=== PATIENT | male | born 1955 | race Caucasian/White ===

== ENCOUNTER 2019-08-12 10:41 | Outpatient (CLI) | payer MEDICARE, SELFPAY ==
--- NOTE | ~2019-08-12 | PE_ITS ---
EXAMINATION: PET skull to mid thigh DATE: 08/12/2019 14:21 INDICATION: Malignant neoplasm of bone and articular cartilage. Lung cancer. TECHNIQUE: Blood glucose level was 125 mg/dL. 9.697 mCi of 18-fluorodeoxyglucose (18-FDG) was adminis tered i.v. Low dose computed tomography (CT) images were acquired from the base of the brain to the p roximal thighs for attenuation correction and anatomic localization. Automated exposure control was e mployed. Dose-length product (DLP) was 1229 mGy-cm. Positron emission tomography (PET) images were ac quired in the same distribution. COMPARISON: Chest CT 04/12/2016, lumbar spine 07/31/2019, brain MRI 11/21/2014 FINDINGS: Head/neck: There is chronic encephalomalacia involving right parietal and temporal lobes with decreas ed activity. There is increased activity in some of the neck muscles without CT correlate, likely phy siologic. There is increased activity in the oropharynx and glottis without CT correlate, likely phys iologic. There are no pathologically enlarged lymph nodes. Chest: There are changes of total left pneumonectomy. There is fluid in the left pneumonectomy resect ion cavity with chronic wall thickening without increased activity. There is chronic leftward shift o f the mediastinum. There is mild scarring at right lung apex. There is a 4 mm nodule in right upper l obe. There is a 5 mm nodule in right lower lobe. There is 11 mm nodule at right major fissure in righ t lower lobe. There is no increased activity in these nodules. These nodules are stable from 6, likely benign. No right pleural effusion. The heart size is normal. There are coronary artery calc ifications. No pericardial effusion. Abdomen/pelvis/proximal thighs: The liver and spleen are normal. There are changes of cholecystectomy . The pancreas, adrenal glands, and kidneys are normal. The prostate is mildly enlarged. There are no dilated loops of bowel. There are no pathologically enlarged lymph nodes. There is no free intraperi toneal fluid. There is a left inguinal hernia containing fat. There is a large permeative lytic lesio n in L5 vertebral body with maximum SUV of 23.9. IMPRESSION: 1. Permeative lytic lesion in L5 vertebral body with increased activity, consistent with metastatic d isease. Reviewed, dictated and finalized at location A. RANS SERVICE REPRESENTATIVE IMPRESSION: 1. Permeative lytic lesion in L5 vertebral body with increased activity, consis tent with metastatic disease.
[2019-08-12 11:11] LABS: Glucose Point of Care 125 (65-105)
== END 2019-08-12 10:42 | disposition home or self-care (01) ==
PROVIDERS: Visit Provider Family Medicine
DX: C41.9 Malignant neoplasm of bone and articular cartilage, unspecified (principal)
CPT/HCPCS: 78815; A9552

== ENCOUNTER 2019-10-01 14:22 | Outpatient (CLI) | payer MEDICARE, SELFPAY ==
--- NOTE | ~2019-10-01 | XR_ITS ---
XR lumbar spine 2-3V DATE: 10/01/2019 15:07 INDICATION: 6 weeks postoperative TECHNIQUE: AP and lateral views of the lumbar spine COMPARISON: 07/23/2009 lumbar spine 07/31/2019 MRI lumbar spine FINDINGS: Since 07/23/2019 there is posterior spinal fusion from L3-S1, with posterior pedicle screws at L3, L4 and S1 bilaterally and another screw extending obliquely inferolaterally across the left sa croiliac area. Bone graft material is noted along the posterior elements of the lower lumbar area. The hardware appears intact, without evidence of fracture or displacement from expected position. No interval fracture or dislocation. Bone destruction is again noted at L5. Moderately prominent degenerative disease at L2-3. There is extensive calcification of the abdominal aorta and iliac arteries, without evidence of aneur ysm. Status post cholecystectomy. IMPRESSION: Status post posterior fusion at L3-S1 Again noted is destruction of L5 vertebral body Reviewed, dictated and finalized at location B.
== END 2019-10-01 14:23 | disposition home or self-care (01) ==
LOC: ANHIMG 14:45
DX: Z09 Encounter for follow-up examination after completed treatment for conditions other than malignant neoplasm (principal); Z98.1 Arthrodesis status; Z90.49 Acquired absence of other specified parts of digestive tract
CPT/HCPCS: 72100

== ENCOUNTER 2019-12-05 07:56 | Outpatient (CLI) | payer MEDICARE, SELFPAY ==
--- NOTE | ~2019-12-05 | US_ITS ---
US venous doppler [facility] DATE: 12/05/2019 08:35 INDICATION: Bilateral leg edema TECHNIQUE: Real-time and color flow imaging and Doppler analysis COMPARISON: None FINDINGS: The greater saphenous veins are patent. There is spontaneous and phasic flow and normal aug mentation and color flow signal and normal compression of the deep veins of both lower extremities. N o deep venous thrombosis is detected. IMPRESSION: Negative Reviewed, dictated and finalized at Location A. Reviewed, dictated and finalized at location A. IMPRESSION: Negative
== END 2019-12-05 07:57 | disposition home or self-care (01) ==
LOC: ANHIMG 08:04
PROVIDERS: PCP Family Medicine; Visit Provider Internal Medicine Medical Oncology
DX: R60.0 Localized edema (principal)
CPT/HCPCS: 93970

== ENCOUNTER 2019-12-17 09:58 | Outpatient (CLI) | payer MEDICARE, SELFPAY ==
--- NOTE | ~2019-12-17 | CT_ITS ---
EXAMINATION: CT chest abdomen pelvis w con EXAM DATE: 12/17/2019 10:59 INDICATION: Diffuse large cell lymphoma. Permeative L5 lesion. Lung cancer. TECHNIQUE: Spiral CT of the chest, abdomen and pelvis was performed following intravenous injection o f 100 mL Omnipaque 350. Axial, coronal and sagittal images were reviewed. Coronal maximum intensity pixel images of chest reviewed. The dose-length product (DLP) for this examination was 1764.11 mGy- cm. The exposure was tailored according to patient size (auto mA exposure control), and iterative re construction (ASIR) was used as additional dose reduction technique. Comparison is made to prior exam ination from 08/12/2019. FINDINGS: CHEST: There is a right-sided Chemo-Port. Status post left pneumonectomy with chronic left pleural e ffusion, leftward mediastinal shift. Pleural-based right lower lobe nodules are unchanged, largest 11 mm, granulomas. No new or suspicious right lung nodules. There are no pleural or pericardial effusio ns. Tracheobronchial tree is patent. There is no mediastinal, hilar or axillary lymphadenopathy. There is no pneumothorax. Heart normal in size. There is mild to moderate coronary arterial aaron cification, arterial sclerosis. ABDOMEN PELVIS: The liver, spleen, adrenal glands and pancreas are unremarkable. There are cholecyst ectomy clips. Portal and splenic veins are patent. Kidneys enhance symmetrically. There is no hydr onephrosis. The prostate is unremarkable. The bladder is unremarkable. There is no retroperitonea l or pelvic lymphadenopathy. There is moderate scattered arteriosclerotic disease. The appendix is normal. The stomach and small bowel are unremarkable. There is expected amount of c olonic stool. No free intraperitoneal gas. There is been interval placement of fusion hardware at L3-S1. The right L5 radicular screw traverses the lateral recess. Again there is diffuse permeative pattern to the L5 vertebral body. There is no m oderate to severe pathological compression of this level, mild progression compared to prior study. L 5 laminectomies. No other osseous lesions. IMPRESSION: 1. Interval lower lumbar fusion, L5 laminectomy. Progression in the collapse of the L5 pathologic co mpression fracture. 2. Stable right lung noncalcified granulomas and left surgical changes. Reviewed, dictated and finalized at location A. IMPRESSION: 1. Interval lower lumbar fusion, L5 laminectomy. Progression in the collapse o f the L5 pathologic compression fracture. 2. Stable right lung noncalcified granulomas and left surgical changes.
[2019-12-17 10:47] LABS: Estimated Glomerular Filt Rate > 60
== END 2019-12-17 09:59 | disposition home or self-care (01) ==
LOC: ANHIMG 10:00
PROVIDERS: PCP Family Medicine
DX: C83.39 Diffuse large B-cell lymphoma, extranodal and solid organ sites (principal); Z98.1 Arthrodesis status; M48.56XA Collapsed vertebra, not elsewhere classified, lumbar region, initial encounter for fracture; R91.8 Other nonspecific abnormal finding of lung field
CPT/HCPCS: 36415; 71260; 74177; Q9967

== ENCOUNTER 2020-02-14 10:30 | Outpatient (RCR) | payer MEDICARE, SELFPAY ==
--- NOTE | 2019-12-08 15:56 | PTOPEVAL ---
PHYSICAL THERAPY EVALUATION AND PLAN OF CARE 12-08-2019 PT evaluation was completed for the diagnosis of leg weakness. His plan of treatment is scheduled for 1-2 x/week for 5 weeks. Thank you for referring Geovanny Julian to [facility]. Please review, sign, date and return this plan of care [facility]. I agree with and certify that the following plan of care is medically necessary. Referring Physician Date Attending Provider: Brayan Castelan DO *PT Outpatient Evaluation Start: 12/08/19 14:44 Document 12/08/19 14:40 JACINDA (Rec: 12/08/19 15:47 JACINDA [id number]) Outpatient Past Medical History Past Medical History Source of Past Medical History Patient,Family/Significant Other Neurological History Hx Neurological Disorders No Significant History Cardiovascular History Hx Atrial Fibrillation Yes: one incident in hospital, monitor 30 days no issues Hx Hypertension Yes: meds Respiratory History Hx Other Respiratory Disorders Yes: L lung removed due to cancer; Gastrointestinal History Hx Gastrointestinal Disorders No Significant History Genitourinary History Hx Genitourinary Disorders No Significant History Musculoskeletal History Hx Orthopedic Surgery Yes: this surgery- lumbar fusion L 3-S1 due to L5 tumor burst Endocrine History Hx Endocrine Disorders No Significant History HEENT History Hx Other HEENT Disorders Yes: glasses Other History Hx Cancer Yes: 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
--- NOTE | 2020-01-11 15:10 | PCPTNOTE ---
pt's called and left voice message, canceled stated radiation has made him too fatigued/exhausted to come in today; I returned call and left them a voice mail, if need to return to PT or HOLD due to radiation and not feeling well.
--- NOTE | 2020-01-20 08:52 | PTOPEVAL ---
PHYSICAL THERAPY RE-EVALUATION AND UPDATED PLAN OF CARE 01-20-2020 Mr. Julian has received 8 PT sessions, from December 07 to today, for the diagnosis of leg weakness and decreased gait balance. Compared to the initial evaluation, he has improved with: R and L LE strength; transfer supine/sit and sit/stand; 6 minute walking distance; Tinetti balance score; ability on stairs and reported activity tolerance at home. He has been issued a home exercise program for leg strengthening. PT is to continue, 2x/week for 3 weeks, to further increase his strength, balance and mobility. Thank you for referring Geovanny Julian to [facility]. Please review, sign, date and return this plan of care [facility]. I agree with and certify that the following plan of care is medically necessary. Referring Physician Date Attending Provider: Brayan Castelan, *PT Outpatient Re-Evaluation Document 01/20/20 08:10 JACINDA (Rec: 01/20/20 08:50 JACINDA [id number]) Subjective Information Bill reports: radiation is Query Text:As Reported By Patient/ completed, after 10 sessions; Family is using the wheeled walker for distances and not using in the house- no device or cane; have been fatigued with radiation; trying to do more activity, but have to rest after about 10 minutes; no falls; want to continue PT to get stronger and be able to get on/off motorcycle. Pain Assessment Timing of Pain Assessment Timing of Pain Assessment Assessment Pain Scale Pain Scale Used Numeric (1 - 10) Self Report Pain Assessment Bilateral Back Reported Pain Level 2 Pain Frequency Chronic Pain Score Pain Score 2: Self Report Lower Extremity Muscle Strength Testing General Lower Extremity Strength Gross Lower Extremity Strength sit/stand from chair 18 - requires use of 1 UE; and labored; with stand to sit, without UE use, plop into chair--cannot control eccentric motion; - sitting L LE; knee ext x 25 reps; alt R/L hip flex x 20 reps; good control with R LE motions and placement Transfer Assessment Floor Transfer Assessment Floor Transfer Comments have goal for floor transfer, but pt did not want to do today; does not normally get on/off floor and does not feel like he has enough energy to do this AM. Balance Assessment Tinetti Balance Assessment Sitting Balance Steady, s
--- NOTE | 2020-02-14 11:18 | PTOPEVAL ---
PHYSICAL THERAPY DISCHARGE 02-14-2020 Paresh has received a total of 14 PT sessions, from December 07 to today, for the diagnosis of leg weakness. Compared to the last reevaluation: is now able to transfer without the use of UE's: standing up from 22 seat height and sitting down to 18 seat height; Tinetti balance score improved by 3 points; 6 minute walking test is the same distance, but did not require a rest break; he stated he feels his legs are stronger and is walking more with the cane. The goals were partially achieved. He is to continue to work on his leg strengthening exercises and increase his activity tolerance, with rest periods as needed. Thank you for referring Mr. Julian to [facility]. Please review, sign, date and return this discharge [facility]. I agree with and certify that the following plan of care is medically necessary. Referring Physician Date Attending Provider: Brayan Castelan DO *PT Outpatient Discharge Document 02/14/20 10:35 JACINDA (Rec: 02/14/20 11:13 JACINDA [id number]) Subjective Information Paresh reports: has not had any Query Text:As Reported By Patient/ falls, is walking and feels Family like legs are stronger; has not been doing his leg exercises, but walking more and mowing yard on riding treatment counselor; Pain Assessment Timing of Pain Assessment Timing of Pain Assessment Assessment Pain Scale Pain Scale Used Numeric (1 - 10) Self Report Pain Assessment Bilateral Back Reported Pain Level 0 Pain Frequency Chronic Lowest Pain Intensity 0 Greatest Pain Intensity 8 Pain Aggravating Factors Weight Bearing/Standing Other Pain Aggravating Factors standing tolerance 5 min, Pain Relief Interventions Used By Inactivity/Rest,Sitting Patient Additional Pain Comments take pain pill or muscle relaxer before bed sometimes Pain Score Pain Score 0: Self Report Lower Extremity Muscle Strength Testing General Lower Extremity Strength Gross Lower Extremity Strength sit to stand from 18 seat: stand with 1 UE support/ sit down without UE use- control well; side lying hip abduction R 6 reps /L 7 reps; supine bridge x 15 rpes; -simulated standing and raising R leg up/over, like getting onto motorcycle; he was able to lift foot ~ knee high; would not be able to clear his motorcycle seat; ADD: HEP: bridge and hip abduction in side lying Transf
== END 2020-02-14 14:30 | disposition home or self-care (01) ==
LOC: ANHPT 10:30
PROVIDERS: PCP Family Medicine; Visit Provider Internal Medicine Medical Oncology
DX: R29.898 Other symptoms and signs involving the musculoskeletal system (principal)
CPT/HCPCS: 97110; 97162

== ENCOUNTER 2020-04-17 11:02 | Outpatient (CLI) | payer MEDICARE, SELFPAY ==
--- NOTE | ~2020-04-17 | CT_ITS ---
EXAMINATION: CT chest abdomen pelvis w con DATE: 04/17/2020 12:17 INDICATION: Large B-cell lymphoma; restaging TECHNIQUE: Computed tomography (CT) of the chest, abdomen, and pelvis was performed with 100 cc Omnip aque 350 intravenous contrast. Automated exposure control and iterative reconstruction technique were employed. Exam dose: 1674.01 mGy-cm total exam DLP. COMPARISON: 12/17/2019 CT chest abdomen pelvis FINDINGS: CHEST CT: Status post left thoracotomy/left pneumonectomy, with corresponding shift of the heart mediastinum in to the left thorax. Right Port-A-Cath catheter tip in upper right atrium. Heart size is within upper limits of normal. There is no pericardial effusion. There are coronary art tyra calcifications. Approximately 8.5 mm pleura-based nodule in the right lower lobe, possibly fissural node, not change d since 11/2019. No interval new or enlarging pulmonary mass is noted. There is no pulmonary infiltr ate or consolidation. ABDOMEN/PELVIS CT: Status post cholecystectomy. The liver, spleen, pancreas, adrenal glands and kidneys are unremarkable. No bile duct or pancreatic duct dilatation. No urinary tract calculus or hydroureteronephrosis. Normal caliber but extensive atherosclerotic calcification of the abdominal aorta and iliac arteries. No intraperitoneal or retroperitoneal or pelvic mass lesion or adenopathy or ascites. There is mild diffuse thickening of the urinary bladder wall. Moderate prostate enlargement. No bowel obstruction, bowel wall thickening, pneumatosis or intraperitoneal free air. Normal appendix . Bilateral small fat-containing inguinal hernias. Status post posterior spinal fusion at L3-S1 and chronic pathological fracture of L5. IMPRESSION: Status post left thoracotomy and pneumonectomy Right Port-A-Cath in upper right atrium No interval mass or lymphadenopathy since 12/17/2019 Reviewed, dictated and finalized at Location A. Reviewed, dictated and finalized at location A.
[2020-04-17 12:06] LABS: Estimated Glomerular Filt Rate > 60
== END 2020-04-17 11:03 | disposition home or self-care (01) ==
PROVIDERS: PCP Family Medicine; Visit Provider Internal Medicine Medical Oncology
DX: C83.39 Diffuse large B-cell lymphoma, extranodal and solid organ sites (principal)
CPT/HCPCS: 71260; 74177; Q9967

== ENCOUNTER 2020-07-10 10:09 | Outpatient (CLI) | payer MEDICARE, SELFPAY ==
--- NOTE | ~2020-07-10 | CT_ITS ---
EXAMINATION: CT chest abdomen pelvis w con DATE: 07/10/2020 11:03 INDICATION: Restaging of non-Hodgkin's lymphoma TECHNIQUE: Computed tomography (CT) of the chest, abdomen, and pelvis was performed with 100 cc Omnip aque 350 intravenous contrast. Automated exposure control and iterative reconstruction technique were employed. Exam dose: 1572.20 mGy-cm total exam DLP. COMPARISON: 04/17/2020 CT chest abdomen pelvis 12/17/2019 CT chest abdomen pelvis FINDINGS: CHEST CT: Right Port-A-Cath catheter tip in right atrium. Status post complete left lung resection with leftward shift of heart and mediastinum. No hilar or mediastinal mass lesion or lymphadenopathy. There is atherosclerotic calcification of the thoracic aorta, great vessels and coronary arteries. No thoracic aortic aneurysm or dissection is evident. Stable approximately 9 mm probable right greater fissural lymph node. Two stable 4 mm or smaller right lower lobe opacities, not significantly changed since 12/17/2019. No pulmonary infiltrate or consolidation is evident on the right. No right pleural effusion. No peric ardial effusion. ABDOMEN/PELVIS CT: Status post cholecystectomy. No hepatic, splenic, pancreatic, and adrenal or renal space-occupying ma ss lesion is evident. There is extensive calcification of the abdominal aorta, iliac and femoral arteries, without evidence of aneurysm. No intraperitoneal or retroperitoneal or pelvic mass lesion or adenopathy or ascites. Small bilateral fat-containing inguinal hernias. Mild sigmoid colon diverticulosis; no CT evidence of diverticulitis. Normal appendix. No bowel obstru ction, bowel wall thickening, pneumatosis or intraperitoneal free air. Diffuse idiopathic skeletal hyperostosis of the thoracic spine. Severe likely pathologic compression fracture deformity at L5; status post posterior surgical spinal fusion at L3-S1. IMPRESSION: No chest, abdomen or pelvic mass or lymphadenopathy Status post left pneumonectomy Status post cholecystectomy Chronic likely pathological fracture at L5 with posterior spinal fusion at L3-S1 Mild colonic diverticulosis Reviewed, dictated and finalized at Location A. Reviewed, dictated and finalized at location A. OLL ACCOUNTING CLERK IMPRESSION: No chest, abdomen or pelvic mass or lymphadenopathy Status post left pneumonectomy Status post cholecystectomy Chronic likely pathological fracture at L5 with posterior spinal fusion at L3-S 1 Mild colonic diverticulosis
[2020-07-10 10:41] LABS: Estimated Glomerular Filt Rate > 60
== END 2020-07-10 10:10 | disposition home or self-care (01) ==
PROVIDERS: PCP Physician Assistant; Visit Provider Internal Medicine Medical Oncology
DX: C85.90 Non-Hodgkin lymphoma, unspecified, unspecified site (principal); K57.30 Diverticulosis of large intestine without perforation or abscess without bleeding; Z90.49 Acquired absence of other specified parts of digestive tract; Z98.1 Arthrodesis status
CPT/HCPCS: 71260; 74177; Q9967

== ENCOUNTER 2020-08-11 09:37 | Outpatient (CLI) | payer MEDICARE, SELFPAY | END 2020-08-11 09:38 | disposition home or self-care (01) | LOC: CHSLAB 09:42 | PROVIDERS: PCP Physician Assistant; Visit Provider Specialist | DX: C44.212 Basal cell carcinoma of skin of right ear and external auricular canal (principal) | CPT/HCPCS: 88305 ==

== ENCOUNTER 2020-09-15 11:14 | Outpatient (CLI) | payer MEDICARE, SELFPAY | END 2020-09-15 11:15 | disposition home or self-care (01) | LOC: ANHCOVIDVC 11:15 | PROVIDERS: PCP Physician Assistant | DX: Z23 Encounter for immunization (principal) | CPT/HCPCS: 0001A; 91300 ==

== ENCOUNTER 2020-10-06 09:13 | Outpatient (CLI) | payer MEDICARE, SELFPAY ==
--- NOTE | ~2020-10-06 | CT_ITS ---
EXAMINATION: CT chest abdomen pelvis w con EXAM DATE: 10/06/2020 09:51 INDICATION: Diffuse large B-Cell lymphoma of extranodal site excluding s . Lung cancer. TECHNIQUE: Spiral CT of the chest, abdomen and pelvis was performed following intravenous injection o f 100 mL Omnipaque 350. Axial, coronal and sagittal images were reviewed. Coronal maximum intensity pixel images of chest reviewed. The dose-length product (DLP) for this examination was 1867.57 mGy- cm. The exposure was tailored according to patient size (auto mA exposure control), and iterative re construction (ASIR) was used as additional dose reduction technique. Comparison is made to prior exam ination from 07/10/2020. FINDINGS: CHEST: There is a right-sided portacatheter. There is left-sided pneumonectomy with chronic small am ount of left pleural fluid, chronic pleural thickening on the left and leftward mediastinal shift. No central pulmonary emboli. Right lung has compensatory hyperexpansion. There is no interval change i n the pleural-based nodule in the right lower lobe along the major fissure measuring about 4 mm in th ickness by 10 mm in diameter, and smaller 3 mm adjacent nodules, likely postinfectious. Tracheobronch ial tree is patent. There is no mediastinal, hilar or axillary lymphadenopathy. There is no pneum othorax. Heart normal in size. There is moderate to severe coronary arterial calcification, arter ial sclerosis. ABDOMEN PELVIS: The liver, spleen, adrenal glands and pancreas are unremarkable. There are cholecyst ectomy clips. Portal and splenic veins are patent. Kidneys enhance symmetrically. There is no hydr onephrosis. There is mild prostatomegaly. The bladder is unremarkable. There is no retroperitoneal or pelvic lymphadenopathy. There is moderate to severe scattered arteriosclerotic disease. The appendix is normal. The stomach and small bowel are unremarkable. There is expected amount of c olonic stool. No free intraperitoneal gas. Abnormal L5 bone density with moderate to severe patho logical compression at this level, and stabilization, fusion from L4 through S1, unchanged. IMPRESSION: Stable exam. Reviewed, dictated and finalized at location A. IMPRESSION: Stable exam.
[2020-10-06 09:42] LABS: Estimated Glomerular Filt Rate > 60
== END 2020-10-06 09:14 | disposition home or self-care (01) ==
PROVIDERS: PCP Physician Assistant; Visit Provider Internal Medicine Medical Oncology
DX: C83.39 Diffuse large B-cell lymphoma, extranodal and solid organ sites (principal)
CPT/HCPCS: 71260; 74177; Q9967

== ENCOUNTER 2020-10-06 10:18 | Outpatient (CLI) | payer MEDICARE, SELFPAY | END 2020-10-06 10:19 | disposition home or self-care (01) | LOC: ANHCOVIDVC 10:18 | PROVIDERS: PCP Physician Assistant | DX: Z23 Encounter for immunization (principal) | CPT/HCPCS: 0002A; 91300 ==

== ENCOUNTER 2021-01-19 08:31 | Outpatient (CLI) | payer MEDICARE, SELFPAY ==
--- NOTE | ~2021-01-19 | CT_ITS ---
EXAMINATION: CT chest abdomen pelvis w con EXAM DATE: 01/19/2021 10:00 INDICATION: Diffuse large B cell lymphoma of extranodal site. Lung cancer. TECHNIQUE: Spiral CT of the chest, abdomen and pelvis was performed following intravenous injection o f 100 mL Omnipaque 350. Axial, coronal and sagittal images were reviewed. Coronal maximum intensity pixel images of chest reviewed. The dose-length product (DLP) for this examination was 1892.76 mGy- cm. The exposure was tailored according to patient size (auto mA exposure control), and iterative re construction (ASIR) was used as additional dose reduction technique. Comparison is made to prior exam ination from 10/06/2020. FINDINGS: CHEST: There is a right-sided portacatheter. There is left-sided pneumonectomy with chronic small am ount of left pleural fluid, chronic pleural thickening on the left and leftward mediastinal shift. No central pulmonary emboli. Right lung has compensatory hyperexpansion. There is no interval change i n the pleural-based nodule in the right lower lobe along the major fissure measuring about 4 mm in th ickness by 10 mm in diameter, and smaller 3 mm adjacent nodules, likely postinfectious. There is no mediastinal, hilar or axillary lymphadenopathy. There is no pneumothorax. Heart normal in size. There is moderate to severe coronary arterial calcification, arterial sclerosis. ABDOMEN PELVIS: The liver, spleen, adrenal glands and pancreas are unremarkable. There are cholecys tectomy clips. Portal and splenic veins are patent. Kidneys enhance symmetrically. There is no hyd ronephrosis. There is mild prostatomegaly. The bladder is unremarkable. There is no retroperitonea l or pelvic lymphadenopathy. There is moderate scattered arteriosclerotic disease. Small inguinal f at-containing hernias. The appendix is normal. The stomach and small bowel are unremarkable. There is expected amount of c olonic stool. No free intraperitoneal gas. Abnormal L5 bone density with moderate to severe patho logical compression at this level, and stabilization, intact fusion from L4 through S1, unchanged. Th ere is some chronic lucency surrounding the S1 pedicular screws consistent with some amount of loosen ing. IMPRESSION: No lymphadenopathy. Surgical changes. Stable exam. Reviewed, dictated and finalized at location B.
[2021-01-19 09:51] LABS: Estimated Glomerular Filt Rate > 60
== END 2021-01-19 08:32 | disposition home or self-care (01) ==
PROVIDERS: PCP Physician Assistant; Visit Provider Internal Medicine Medical Oncology
DX: C83.39 Diffuse large B-cell lymphoma, extranodal and solid organ sites (principal); C79.51 Secondary malignant neoplasm of bone
CPT/HCPCS: 71260; 74177; Q9967

== ENCOUNTER 2021-05-18 09:05 | Outpatient (CLI) | payer MEDICARE, SELFPAY ==
--- NOTE | ~2021-05-18 | CT_ITS ---
EXAMINATION: CT chest abdomen pelvis w con EXAM DATE: 05/18/2021 09:55 INDICATION: Diffuse Large B-Cell Lymphoma Of Extranodal Site Excluding TECHNIQUE: Spiral CT of the chest, abdomen and pelvis was performed following intravenous injection o f 100 mL Omnipaque 350. Axial, coronal and sagittal images chest, abdomen and pelvis were reviewed. Coronal maximum intensity pixel images of chest reviewed. The dose-length product (DLP) for this ex amination was 2090.88 mGy-cm. The exposure was tailored according to patient size (auto mA exposure control), and iterative reconstruction (ASIR) was used as additional dose reduction technique. Compar jolynn is made to prior examination from 01/19/2021. FINDINGS: There is a right-sided portacatheter. There is left-sided pneumonectomy with chronic small amount of left pleural fluid, chronic left pleural thickening with some calcifications. Leftward medi astinal shift. No central pulmonary emboli. Right lung has compensatory hyperexpansion. There is no interval change in the pleural-based nodule in the right lower lobe along the major fissure measuring about 4 mm in thickness by 10 mm in diameter, and smaller 3 mm adjacent nodules, likely postinfectio us. There is no mediastinal, hilar or axillary lymphadenopathy. There is no pneumothorax. Heart normal in size. There is moderate to severe coronary arterial calcification, arterial sclerosis. ABDOMEN PELVIS: There is hepatic steatosis without suspicious focal lesion identified. Spleen, adren al glands, pancreas are unremarkable. There are cholecystectomy clips. Portal and splenic veins are patent. Kidneys enhance symmetrically. There is no hydronephrosis. There is mild prostatomegaly. The bladder is unremarkable. There is no retroperitoneal or pelvic lymphadenopathy. There is mode rate to severe scattered arteriosclerotic disease. Small inguinal fat-containing hernias. The appendix is normal. The stomach and small bowel are unremarkable. There is expected amount of c olonic stool. No free intraperitoneal gas. Abnormal L5 bone density with moderate to severe patho logical compression at this level, and stabilization, intact fusion from L4 through S1, unchanged. Th ere is some chronic lucency surrounding the S1 pedicular screws consistent with some amount of loosen ing. IMPRESSION: 1. No chest abdomen or pelvis lymphadenopathy. 2. Hepatic steatosis. 3. Other chronic and surgical changes. Reviewed, dictated and finalized at location A.
[2021-05-18 09:39] LABS: Estimated Glomerular Filt Rate > 60
== END 2021-05-18 09:06 | disposition home or self-care (01) ==
PROVIDERS: Visit Provider Internal Medicine Medical Oncology
DX: C83.39 Diffuse large B-cell lymphoma, extranodal and solid organ sites (principal); C79.51 Secondary malignant neoplasm of bone; K76.0 Fatty (change of) liver, not elsewhere classified
CPT/HCPCS: 71260; 74177; Q9967

== ENCOUNTER 2021-08-17 09:29 | Outpatient (CLI) | payer MEDICARE, SELFPAY ==
--- NOTE | ~2021-08-17 | CT_ITS ---
EXAMINATION: CT chest abdomen pelvis w con DATE: 08/17/2021 10:06 INDICATION: Large B-cell lymphoma. Non-small cell lung cancer. TECHNIQUE: Computed tomography (CT) of the chest, abdomen, and pelvis was performed with 100 mL Omnip aque 350 intravenous contrast. Automated exposure control and iterative reconstruction technique were employed. The dose-length product was 1941.40 mGy-cm. COMPARISON: CT chest, abdomen, and pelvis 12/17/19, 05/18/21 FINDINGS: CHEST CT: There is mild atelectasis in right lung. There is a 6 mm nodule in right upper lobe, stable from . There are two 6 mm nodules in right lower lobe, stable from 12/17/19. There is an 8 mm nodule at ri ght major fissure, stable from 12/17/19. No right pleural effusion. There are changes of total left pne umonectomy. There is a small volume of fluid in the postpneumonectomy space with chronic wall thicken ing. There is chronic leftward shift of the mediastinum. The heart size is normal. There are coronary artery calcifications. No pericardial effusion. There are no pathologically enlarged lymph nodes. ABDOMEN/PELVIS CT: The liver is normal. Calcifications in the spleen are consistent with old granulomatous disease. Ther e are changes of cholecystectomy. The pancreas, adrenal glands, and kidneys are normal. The prostate is moderately enlarged. There is diverticulosis of the colon without evidence of diverticulitis. Ther e are no dilated loops of bowel. The appendix is normal. There are no pathologically enlarged lymph n odes. There is no free intraperitoneal fluid. There is a chronic burst fracture of L5. There is a chr onic mixed lytic and sclerotic pattern in L5. There are changes of posterior fusion procedure from L3 to S1 and the left ilium. There are chronic lucencies around the S1 screws, consistent with loosenin g. IMPRESSION: 1. Stable mixed lytic and sclerotic pattern in L5 with chronic pathologic burst fracture, consistent with metastatic disease. 2. No lymphadenopathy. Reviewed, dictated and finalized at location E. IAC CATH RN
[2021-08-17 10:01] LABS: Estimated Glomerular Filt Rate > 60
== END 2021-08-17 09:30 | disposition home or self-care (01) ==
PROVIDERS: Visit Provider Internal Medicine Medical Oncology
DX: C85.90 Non-Hodgkin lymphoma, unspecified, unspecified site (principal)
CPT/HCPCS: 71260; 74177; Q9967

== ENCOUNTER 2021-12-31 09:55 | Outpatient (CLI) | payer MEDICARE, SELFPAY ==
--- NOTE | ~2021-12-31 | CT_ITS ---
EXAMINATION: CT chest abdomen pelvis w con DATE: 12/31/2021 10:36 INDICATION: Lung cancer with bone metastasis, large B-cell lymphoma TECHNIQUE: Transaxial computed tomographic images of the chest, abdomen, and pelvis were obtained aft er the administration of 100 cc of Omnipaque 300 intravenous contrast. The dose-length product (DLP) was 1920.42 mGy-cm. Automated exposure control and iterative reconstruction technique were employed. COMPARISON: 08/17/2021 FINDINGS: CHEST CT: There are changes of left pneumonectomy. There is a stable 6 mm subpleural nodule of the right upper lobe. Also seen are two stable 6 mm nodules of the right lower lobe and a stable 8 mm nodule of the r ight major fissure. No new pulmonary nodules are identified. There is no pneumothorax. A small chroni c left effusion is noted in the pneumonectomy cavity. No pathologically enlarged thoracic lymph nodes are identified. The heart size is normal. ABDOMEN/PELVIS CT: The liver is diffusely low in attenuation when compared with the spleen, consistent with hepatic stea tosis. The spleen, pancreas, and adrenal glands are normal. The gallbladder is surgically absent. The kidneys are unremarkable. There is calcified atherosclerosis of the aorta and many of the other piero reji. No pathologically enlarged abdominal or pelvic lymph nodes are identified. There is no free int raperitoneal gas or evidence of bowel obstruction. There is calcified atherosclerosis of the aorta an d many of the other arteries. The appendix is normal. There is a chronic mixed lytic and sclerotic pa ttern and L5 with a chronic burst fracture. Changes of posterior fusion from L3 through the ileum are noted. There are unchanged lucency surrounding the S1 screws, consistent with loosening. IMPRESSION: 1. Stable right lung nodules, likely old granulomatous disease. 2. Changes of left pneumonectomy with chronic left effusion the pneumonectomy cavity. 3. No lymphadenopathy of the chest, abdomen, or pelvis. 4. Chronic L5 metastasis with burst fracture. Reviewed, dictated and finalized at location A. IMPRESSION: 1. Stable right lung nodules, likely old granulomatous disease. 2. Changes of left pneumonectomy with chronic left effusion the pneumonectomy c avity. 3. No lymphadenopathy of the chest, abdomen, or pelvis. 4. Chronic L5 metastasis with burst fracture.
[2021-12-31 10:25] LABS: Estimated Glomerular Filt Rate > 60
== END 2021-12-31 09:56 | disposition home or self-care (01) ==
LOC: ANHIMG 09:57
PROVIDERS: PCP Family Medicine; Visit Provider Internal Medicine Medical Oncology
DX: C79.51 Secondary malignant neoplasm of bone (principal); C83.39 Diffuse large B-cell lymphoma, extranodal and solid organ sites; C34.12 Malignant neoplasm of upper lobe, left bronchus or lung
CPT/HCPCS: 71260; 74177; Q9967

== ENCOUNTER 2022-01-07 02:26 | Day surgery (SDC) | payer MEDICARE, SELFPAY ==
[2022-01-02 11:09] VITALS: BMI 37.3
--- NOTE | 2022-01-04 13:42 | PM.HPGS ---
History of Present Illness History of Present Illness Consent: Risks, benefits, and alternatives have been discussed and questions answered. Patient agrees to proceed with procedure. Chief complaint: neoplasm screening Narrative: Geovanny Julian is a 66 year old male referred for colon cancer screening. his last colonoscopy was 10 years ago. Review of Systems Review of Systems: All systems reviewed & are unremarkable except as noted in HPI and below PMFSH Past Medical History Medical History Atrial fibrillation Back pain Biceps muscle tear Family history of cholecystectomy Hyperlipidemia Hypertension Lung cancer Surgical History Surgical History History of cataract extraction History of eye surgery Previous back surgery Status post removal of lung Family History Family History Mother Diabetes mellitus Father Family history of blood dyscrasia Sibling Family history of malignant neoplasm of breast in first degree relative Other Family history of heart disease in male family member before age 55 Family history of malignant neoplasm Hypertension Social History Social History Smoking packs per day: 3 Smoking cigarettes per day: 60.0 Years smoked: 40 Smoking pack-years: 120.00 Smoking status: Former smoker Tobacco type: cigarettes Second hand tobacco smoke exposure: No Smoking end date: 07/14/14 Alcohol intake: current Drinks per week: 6 Alcohol use details: BEERS Substance use: never Substance use type: does not use Living arrangements: with family Gender identity (if verbalized by the patient): Male Sexual Orientation (if Verbalized by the Patient): Straight or Heterosexual Spiritual care concerns: No Agree to blood products: Yes Meds Home Medications and Allergies Home Medications Medication Instructions Recorded Confirmed Type amitriptyline 25 mg tablet 25 mg PO HS 04/26/20 01/07/22 History amlodipine 5 mg tablet 5 mg PO DAILY 04/26/20 01/07/22 History gabapentin 300 mg capsule 300 mg PO BID 04/26/20 01/07/22 History metoprolol succinate 50 mg 50 mg PO DAILY 04/26/20 01/07/22 History tablet,extended release 24 hr lisinopril 20 mg tablet 20 mg PO DAILY #90 tabs 09/05/21 01/07/22 Rx atorvastatin 40 mg tablet 40 mg PO DAILY 01/02/22 01/07/22 History bacillus coagulans-inulin 1 1 cap PO BID 01/02/22 01/07/22 History billion cell-250 mg capsule (Probiotic with Prebiotic) clopidogrel 75 mg tablet 75 mg PO DAILY 01/02/22 01/07/22 History garlic 1 cap PO HS 01/02/22 01/07/22 History Allergies Allergy/AdvReac Type Severity Reaction Status Date / Time No Known Allergies Allergy Unknown Verified 01/07/22 08:09 Exam Resp: Auscultation: clear to auscultation bilaterally Cardio: Rate: regular rate Rhythm: regular rhythm GI: GI Palp: Yes Soft to palpation and No Tenderness to palpation present (GI) Assessment and Plan Assessment and plan (1) Colon cancer screening: Code(s): Z12.11 - Encounter for screening for malignant neoplasm of colon Status: Acute Assessment and Plan: Colonoscopy with possible biopsy or polypectomy or cautery or injection of substances.
[2022-01-07 08:12] VITALS: BP 144/74; PULSE 70; RESP 18; TEMP 36.6; O2SAT 96; BMI 39.4
[2022-01-07] MEDS: LACTATED RINGERS 1,000 ML 150 ML IV CONT (08:23)
--- NOTE | 2022-01-07 08:33 | WPDANESEPPF ---
Anes - Initial Pre Proc Eval Procedure: Operation Date: 01/07/22 09:00 Proposed Procedures p Screening Colonoscopy - Nick Rolon MD Date/Time: 01/07/22 08:33 Surgeon: Nick Rolon MD Pre Op Diagnosis: neoplasm screening Patient Data Age: 66 Gender: M Height: 1.85 m Weight: 135.4 kg Last Vital Signs Temp 97.9 F 01/07/22 08:12 Pulse 70 01/07/22 08:12 Resp 18 01/07/22 08:12 BP 144/74 H 01/07/22 08:12 Pulse Ox 96 01/07/22 08:12 O2 Del Method Room Air 01/07/22 08:12 Allergies Allergy/AdvReac Type Severity Reaction Status Date / Time No Known Allergies Allergy Unknown Verified 01/07/22 08:09 Home Medications Medication Instructions Recorded Confirmed Type amitriptyline 25 mg tablet 25 mg PO HS 04/26/20 01/07/22 History amlodipine 5 mg tablet 5 mg PO DAILY 04/26/20 01/07/22 History gabapentin 300 mg capsule 300 mg PO BID 04/26/20 01/07/22 History metoprolol succinate 50 mg 50 mg PO DAILY 04/26/20 01/07/22 History tablet,extended release 24 hr lisinopril 20 mg tablet 20 mg PO DAILY #90 tabs 09/05/21 01/07/22 Rx atorvastatin 40 mg tablet 40 mg PO DAILY 01/02/22 01/07/22 History bacillus coagulans-inulin 1 1 cap PO BID 01/02/22 01/07/22 History billion cell-250 mg capsule (Probiotic with Prebiotic) clopidogrel 75 mg tablet 75 mg PO DAILY 01/02/22 01/07/22 History garlic 1 cap PO HS 01/02/22 01/07/22 History Patient hx anesthesia problems: none Family hx anesthesia problems: none Results Review: All pre-operative results and documents have been reviewed as part of the pre-operative evaluation. [facility] [place] Past Medical History Medical History Atrial fibrillation Back pain Biceps muscle tear Family history of cholecystectomy Hyperlipidemia Hypertension Lung cancer Surgical History Surgical History History of cataract extraction History of eye surgery Previous back surgery Status post removal of lung Family History Family History Mother Diabetes mellitus Father Family history of blood dyscrasia Sibling Family history of malignant neoplasm of breast in first degree relative Other Family history of heart disease in male family member before age 55 Family history of malignant neoplasm Hypertension Social History Social History Smoking packs per day: 3 Smoking cigarettes per day: 60.0 Years smoked: 40 Smoking pack-years: 120.00 Smoking status: Former smoker Tobacco type: cigarettes Second hand tobacco smoke exposure: No Smoking end date: 07/14/14 Alcohol intake: current Drinks per week: 6 Alcohol use details: BEERS Substance use: never Substance use type: does not use Living arrangements: with family Gender identity (if verbalized by the patient): Male Sexual Orientation (if Verbalized by the Patient): Straight or Heterosexual Spiritual care concerns: No Agree to blood products: Yes Anes - Eval Final PreProcedure Day of Procedure 01/07/22 08:33 Patient weight: morbidly obese Heart: regular rate and rhythm Lungs: clear to auscultation Airway: Mallampati scale class II Neurological: alert and oriented Last oral intake: >/= 8 hours ASA classification: III Emergent: no Anesthetic plan: proceed Anesthesia type and monitoring: general and standard monitoring Results Review: All pre-operative results and documents have been reviewed as part of the pre-operative evaluation. Informed Consent: The patient's anesthetic plan and its attendant risks and benefits were discussed with the patient/family/POA. Questions were solicited and answers provided to the satisfaction of the patient/family/POA.
[2022-01-07 09:29] VITALS: BP 127/79; PULSE 68; RESP 17; O2SAT 94
[2022-01-07 09:39] VITALS: BP 128/76; PULSE 64; RESP 25; O2SAT 98
[2022-01-07 09:49] VITALS: BP 142/93; PULSE 68; RESP 25; O2SAT 98
== END 2022-01-07 09:52 | disposition home or self-care (01) ==
PROVIDERS: PCP Family Medicine; Visit Provider Internal Medicine Gastroenterology
PROC: 0DJD8ZZ Inspection of Lower Intestinal Tract, Via Natural or Artificial Opening Endoscopic (ICD-10-PCS; CPT 45378; principal; 2022-01-07 09:00)
DX: Z12.11 Encounter for screening for malignant neoplasm of colon (principal); K57.30 Diverticulosis of large intestine without perforation or abscess without bleeding; I48.91 Unspecified atrial fibrillation; I10 Essential (primary) hypertension; E78.5 Hyperlipidemia, unspecified; Z85.118 Personal history of other malignant neoplasm of bronchus and lung; Z70.2 Counseling related to sexual behavior and orientation of third party; Z90.2 Acquired absence of lung [part of]; Z87.891 Personal history of nicotine dependence; E66.01 Morbid (severe) obesity due to excess calories; Z68.39 Body mass index [BMI] 39.0-39.9, adult
CPT/HCPCS: G0121; J2001; J2704; J7120

== ENCOUNTER 2022-07-01 09:59 | Outpatient (CLI) | payer MEDICARE, SELFPAY ==
--- NOTE | ~2022-07-01 | CT_ITS ---
Clinical Indication: Diffuse large B-cell lymphoma CT Scan of the Chest, Abdomen, and Pelvis with Contrast: Technique: Contiguous sections were acquired throughout the chest, abdomen, and pelvis after intraven ous administration of 100 cc of Omnipaque 350. Dose reduction technique was used on this scan by jenny hu automated exposure control and iterative reconstruction technique. The dose-length product (DL P) was 1966.37 mGy-cm. COMPARISON: 12/31/2021 Findings: There is no evidence of any significant mediastinal, hilar or axillary lymphadenopathy. Patient is st atus post prior left pneumonectomy with associated leftward mediastinal shift and small fluid-filled left thoracic cavity, unchanged. No pulmonary embolus evident. No aortic aneurysm or dissection. No right pleural effusion. No pericardial effusion. Stable minimal right upper lobe scarring noted. Stable subpleural nodule in the right upper lobe (axi al image 49). Stable fissural nodule along the right major fissure. Right lung hyperinflated, but oth erwise clear. Diffuse fatty infiltration of the liver noted. Cholecystectomy clips present. The spleen, pancreas, a drenals and kidneys are within normal limits. No evidence of aortic aneurysm. No lymphadenopathy. The bowel is moderately well opacified without evidence of wall thickening. There is no evidence to s uggest acute appendicitis. Urinary bladder is unremarkable. Prostate gland and seminal vesicles are unremarkable. No ascites. Stable heterogeneous appearance of L5 with loss of height and surrounding fixation hardware. Impression: No change from prior exam. No acute abnormality. No suspicious lymphadenopathy. Status post left pneumonectomy. Stable small right pulmonary nodules, as detailed above. Stable heterogeneous appearance of L5 with loss of height and surrounding fixation hardware. This pre sumed represents treated metastatic/pathologic compression fracture. Reviewed, dictated and finalized at location [] CARDER Impression: No change from prior exam. No acute abnormality. No suspicious lymphadenopathy. Status post left pneumonectomy. Stable small right pulmonary nodules, as detailed above. Stable heterogeneous appearance of L5 with loss of height and surrounding fixat ion hardware. This presumed represents treated metastatic/pathologic compressio n fracture.
[2022-07-01 10:23] LABS: Estimated Glomerular Filt Rate > 60
== END 2022-07-01 10:00 | disposition home or self-care (01) ==
PROVIDERS: PCP Family Medicine; Visit Provider Internal Medicine Medical Oncology
DX: C83.39 Diffuse large B-cell lymphoma, extranodal and solid organ sites (principal); C79.51 Secondary malignant neoplasm of bone; C34.12 Malignant neoplasm of upper lobe, left bronchus or lung
CPT/HCPCS: 71260; 74177; Q9967

== ENCOUNTER 2023-01-01 10:18 | Outpatient (CLI) | payer MEDICARE, SELFPAY ==
--- NOTE | ~2023-01-01 | CT_ITS ---
Clinical Indication: Large B-cell lymphoma CT Scan of the Chest, Abdomen, and Pelvis with Contrast: Technique: Contiguous sections were acquired throughout the chest, abdomen, and pelvis after intraven ous administration of 100 cc of Omnipaque 350. Dose reduction technique was used on this scan by jenny hu automated exposure control and iterative reconstruction technique. The dose-length product (DL P) was 1977.79 mGy-cm. COMPARISON: 07/01/2022 Findings: There is no evidence of any significant mediastinal, hilar or axillary lymphadenopathy. Atherosclerot ic changes of the aorta and coronary arteries are present. No pericardial effusion. Patient is status post left nephrectomy, with leftward mediastinal shift. Small left thoracic fluid c ollection is present with thickening of the lining, unchanged. Stable 4 mm pleural-based nodule at the right upper lobe (axial image 49). Stable 9 mm nodule adjacen t to the fissure (axial image 71). Stable smaller nodule in the right lower lobe measuring 4 mm (axia l image 71). No right pleural effusion. Diffuse fatty infiltration of the liver is present. Cholecystectomy clips are present. The spleen, pa ncreas, adrenals and kidneys are within normal limits. There are atherosclerotic calcifications of th e aorta. No lymphadenopathy. No bowel obstruction or bowel wall thickening. There is no evidence to suggest acute appendicitis. Urinary bladder is unremarkable. Prostate gland and seminal vesicles are unremarkable. Stable L5 comp ression fracture with heterogeneous appearance of the bone, with surrounding posterior fixation hardw are. Impression: No significant change from prior exam. No pathologic lymphadenopathy seen. Stable right pulmonary nodules. Status post left pneumonectomy with stable small left thoracic fluid collection. Diffuse fatty infiltration of liver. Stable heterogeneous L5 vertebral body with compression fracture deformity and surrounding fixation h ardware. Reviewed, dictated and finalized at location . Impression: No significant change from prior exam. No pathologic lymphadenopathy seen. Stable right pulmonary nodules. Status post left pneumonectomy with stable small left thoracic fluid collection . Diffuse fatty infiltration of liver. Stable heterogeneous L5 vertebral body with compression fracture deformity and surrounding fixation hardware.
[2023-01-01 10:48] LABS: Estimated Glomerular Filt Rate > 60
== END 2023-01-01 10:19 | disposition home or self-care (01) ==
PROVIDERS: PCP Family Medicine
DX: C83.39 Diffuse large B-cell lymphoma, extranodal and solid organ sites (principal); K76.0 Fatty (change of) liver, not elsewhere classified; R91.8 Other nonspecific abnormal finding of lung field
CPT/HCPCS: 71260; 74177; Q9967

== ENCOUNTER 2023-07-02 10:54 | Outpatient (CLI) | payer MEDICARE, SELFPAY ==
--- NOTE | ~2023-07-02 | CT_ITS ---
Clinical Indication: Lymphoma CT Scan of the Chest, Abdomen, and Pelvis with Contrast: Technique: Contiguous sections were acquired throughout the chest, abdomen, and pelvis after intraven ous administration of 100 cc of Omnipaque 350. Dose reduction technique was used on this scan by jenny hu automated exposure control and iterative reconstruction technique. The dose-length product (DL P) was 1901.73 mGy-cm. COMPARISON: 01/01/2023 Findings: There is no evidence of any significant mediastinal, hilar or axillary lymphadenopathy. The mediastin al soft tissues and vascular structures appear normal. No pericardial effusion. Patient is status post left laminectomy, with small fluid-filled left hemithorax and associated leftw car mediastinal shift. There is hyperinflation of the right lung. There is stable. Fissural nodule (a xial image 75). The liver, spleen, pancreas, adrenals and kidneys are within normal limits. Cholecystectomy clips ar e present. There are atherosclerotic calcifications of the aorta. No lymphadenopathy. No bowel obstruction or bowel wall thickening. There is no evidence to suggest acute appendicitis. Urinary bladder is unremarkable. No pelvic mass seen. No ascites. Stable L5 compression fracture, pos sibly pathologic, with surrounding fixation hardware. Impression: No abnormal lymphadenopathy identified. Status post left laminectomy. Stable suspected pathologic L5 compression fracture with surrounding fixation hardware. Stable fissural nodule in the right lung. Reviewed, dictated and finalized at [facility]. TMENT LEASING SPECIALIST Impression: No abnormal lymphadenopathy identified. Status post left laminectomy. Stable suspected pathologic L5 compression fracture with surrounding fixation h ardware. Stable fissural nodule in the right lung.
[2023-07-02 11:29] LABS: Estimated Glomerular Filt Rate > 60
== END 2023-07-02 10:55 | disposition home or self-care (01) ==
LOC: ANHIMG 10:56
PROVIDERS: PCP Family Medicine; Visit Provider Nurse Practitioner Family
DX: C83.39 Diffuse large B-cell lymphoma, extranodal and solid organ sites (principal); C34.12 Malignant neoplasm of upper lobe, left bronchus or lung; C79.51 Secondary malignant neoplasm of bone
CPT/HCPCS: 71260; 74177; Q9967

== ENCOUNTER 2023-12-22 14:25 | Outpatient (CLI) | payer MEDICARE, SELFPAY ==
--- NOTE | ~2023-12-22 | XR_ITS ---
AP view of the pelvis and AP and lateral views of the right hip Clinical history: Pain COMPARISON: 07/23/2019 Findings: No acute fracture or dislocation is seen. There is posterior fusion hardware extending from L3 through S1, with additional orthopedic both through the left SI joint. There is probable moderate to advanced degenerative change of the SI joints. There is minimal degenerative change of both hip j oints. Soft tissues are unremarkable. Impression: No acute abnormality evident. Minimal degenerative change of the hip joints. Postoperative changes of the lumbosacral spine, as above. Reviewed, dictated and finalized at location M. Impression: No acute abnormality evident. Minimal degenerative change of the hip joints. Postoperative changes of the lumbosacral spine, as above.
== END 2023-12-22 14:26 | disposition home or self-care (01) ==
LOC: ANHIMG 14:29
PROVIDERS: PCP Family Medicine; Visit Provider Physician Assistant Medical
DX: M25.551 Pain in right hip (principal)
CPT/HCPCS: 73502

== ENCOUNTER 2024-01-01 09:39 | Outpatient (CLI) | payer MEDICARE, SELFPAY ==
--- NOTE | ~2024-01-01 | CT_ITS ---
EXAMINATION: CT chest abdomen pelvis w con DATE: 01/01/2024 10:08 INDICATION: Malignant neoplasm of upper lobe of lung, metastatic to bone. TECHNIQUE: Computed tomography (CT) of the chest, abdomen, and pelvis was performed with 100 mL Omnip aque 350 intravenous contrast. Automated exposure control and iterative reconstruction technique were employed. The dose-length product was 1894.59 mGy-cm. COMPARISON: CT 07/02/2023, PET/CT 08/12/19 FINDINGS: CHEST CT: There is mild emphysema. There is mild atelectasis in right lung. There are few nodules in right lung measuring up to 7 mm, stable from 07/02/2023, likely benign. There are changes of left pneumonectomy . There is a small thick-walled fluid collection in the postpneumonectomy space. The heart size is no rmal. There are coronary artery calcifications. No pericardial effusion. The central pulmonary arteri es are enlarged, consistent with pulmonary arterial hypertension. ABDOMEN/PELVIS CT: The liver is normal. There are changes of cholecystectomy. Calcifications in the spleen are consisten t with old granulomatous disease. The pancreas, adrenal glands, and kidneys are normal. The prostate is mildly enlarged. There is a left inguinal hernia containing fat. There is prominent fat in right i nguinal canal that may be a hernia. There are no dilated loops of bowel. The appendix is normal. Ther e is calcified atherosclerosis of the aorta and many of the other arteries. There is moderate stenosi s of superior mesenteric artery. There are no pathologically enlarged lymph nodes. There is no free i ntraperitoneal fluid. There is a chronic pathologic burst fracture of L5. There are changes of lime hide inspector ior fusion procedure from L3 to S1 in the left ilium. There are lucencies around the S1 screws, consi stent with loosening. IMPRESSION: 1. Chronic pathologic burst fracture of L5. 2. Total left pneumonectomy. Reviewed, dictated and finalized at location A.
[2024-01-01 10:00] LABS: Estimated Glomerular Filt Rate > 60
== END 2024-01-01 09:40 | disposition home or self-care (01) ==
LOC: ANHIMG 09:39
PROVIDERS: PCP Family Medicine; Visit Provider Internal Medicine Medical Oncology
DX: S32.051D Stable burst fracture of fifth lumbar vertebra, subsequent encounter for fracture with routine healing (principal); X58.XXXD Exposure to other specified factors, subsequent encounter
CPT/HCPCS: 71260; 74177; Q9967

== ENCOUNTER 2024-01-29 10:50 | Outpatient (CLI) | payer MEDICARE, SELFPAY ==
--- NOTE | ~2024-01-29 | CT_ITS ---
CT lumbar spine wo con Ordering provider: Gabriela Dhaliwal History: 68 years Male with . METASTATIC CANCER TO SPINE;DIFFUSE LARGE B CELL LYMPHOMA . Comparison: None. Technique: CT lumbar spine without contrast. Automated exposure control and iterative reconstruction technique were employed. The dose-length product was 1188.75 mGy-cm. FINDINGS: VERTEBRAE: Loss of volume suggestive of compression fracture of L5 with sclerotic changes which may b e a chronic change or due to an infiltrative process. Postoperative changes for fixation extending fr om L3 to S1. Otherwise, Normal height and alignment. No subluxation or visible acute fracture. DISC SPACES: Slight narrowing of the disc L2-L3.. Multilevel facet joint disease. T12-L1: No stenosis. L1-L2: No stenosis. L2-L3: No stenosis. Diffuse disc bulge with bilateral narrowing of the foramina and the root jose antonio pete. L3-L4: No definite stenosis. Artifacts are seen in the area. L4-L5: No definite stenosis. Artifacts are seen in the area. L5-S1: No definite stenosis. Artifacts are seen in the area. PARASPINOUS SOFT TISSUES: Mild atheromatous disease of the abdominal aorta. Fusion of both sacroiliac joints is noted. IMPRESSION: Sclerotic changes in L5 which may be due to chronic compression. Infiltrative process cannot be exclu ded. No definite destructive lesions in other vertebrae. Reviewed, dictated and finalized at location A. IMPRESSION: Sclerotic changes in L5 which may be due to chronic compression. Infiltrative p rocess cannot be excluded. No definite destructive lesions in other vertebrae.
== END 2024-01-29 10:51 | disposition home or self-care (01) ==
LOC: ANHIMG 10:53
PROVIDERS: PCP Family Medicine
DX: C79.51 Secondary malignant neoplasm of bone (principal); C83.30 Diffuse large B-cell lymphoma, unspecified site; Z98.1 Arthrodesis status
CPT/HCPCS: 72131

== ENCOUNTER 2024-03-01 10:04 | Outpatient (CLI) | payer MEDICARE, SELFPAY ==
[2024-03-01 10:43] LABS: Basophils Absolute Auto 0.1 K/mm3 (0.0-0.1); Basophils Percent Auto 3.9 % (0.2-1.2); Eosinophils Absolute Auto 0.1 K/mm3 (0-0.3); Eosinophils Percent Auto 3.9 % (0-4.4); Hematocrit 47.3 % (42.0-52.0); Hemoglobin 15.8 g/dL (14.0-18.0); Lymphocytes Absolute Auto 0.73 K/mm3 (0.9-3.2); Lymphocytes Percent Auto 47.4 % (18.3-44.2); Mean Corpuscular HGB Conc 33.4 g/dl (32-36); Mean Corpuscular Volume 95.7 fl (80-100); Mean Platelet Volume 10.3 fl (7.4-10.4); Monocytes Absolute Auto 0.5 K/mm3 (0.1-0.6); Monocytes Percent Auto 31.2 % (2.6-8.5); Neutrophils Absolute Auto 0.2 K/mm3 (1.3-6.7); Neutrophils Percent Auto 13.6 % (45.5-73.1); Platelet Count Result 207 k/mm3 (150-375); Red Blood Count 4.94 M/mm3 (4.6-6.20); Red Cell Distribution Width 12.6 % (11.5-14.5)
[2024-03-01 11:18] LABS: White Blood Count 1.5 K/mm3 (4.5-10.0)
[2024-03-01 12:35] LABS: Alanine Aminotransferase 30 U/L (6-50); Albumin Level 4.4 g/dL (3.5-5.1); Alkaline Phosphatase 83 U/L (38-126); Anion Gap 11 mmol/L (4-12); Aspartate Amino Transferase 35 U/L (17-59); Blood Urea Nitrogen 19 mg/dL (9-20); Calcium 9.2 mg/dL (8.4-10.2); Carbon Dioxide 26 mmol/L (22-30); Chloride 102 mmol/L (98-107); Estimated Glomerular Filt Rate > 60; Glucose 132 mg/dL (65-110); Lactate Dehydrogenase 202 U/L (120-246); Potassium 4.5 mmol/L (3.4-5.0); Sodium 139 mmol/L (137-145)
[2024-03-02 15:43] LABS: RNP Antibodies <1.0 NEG AI (<1.0 NEG); SS-A <1.0 NEG AI (<1.0 NEG); SS-B <1.0 NEG AI (<1.0 NEG)
[2024-03-02 17:03] LABS: JO 1 Antibody <1.0 NEG AI (<1.0 NEG); Scleroderma 70 Antibody <1.0 NEG AI (<1.0 NEG)
== END 2024-03-01 10:05 | disposition home or self-care (01) ==
LOC: ANHLAB 10:08
PROVIDERS: PCP Family Medicine; Visit Provider Internal Medicine Medical Oncology
DX: R76.8 Other specified abnormal immunological findings in serum (principal)
CPT/HCPCS: 36415; 80053; 83615; 85025; 86038; 86039; 86235

== ENCOUNTER 2024-03-12 11:46 | Outpatient (CLI) | payer MEDICARE, SELFPAY ==
[2024-03-12 12:40] LABS: Immunoglobulin A 657 mg/dL (70-400); Immunoglobulin G 1467 mg/dL (700-1600); Immunoglobulin M 210 mg/dL (40-230)
[2024-03-16 19:13] LABS: Immunofixation, Serum Normal pattern.
[2024-03-17 04:03] LABS: Protein, Total 7.1 g/dL (6.1-8.1)
[2024-03-17 10:18] LABS: Albumin 3.4 g/dL (3.8-4.8); Alpha 1 Globulin 0.3 g/dL (0.2-0.3); Alpha 2 Globulin 0.6 g/dL (0.5-0.9); Beta 1 Globulin 0.5 g/dL (0.4-0.6); Gamma Globulin 1.6 g/dL (0.8-1.7)
[2024-03-19 13:03] LABS: Kappa\\Lambda Light Chains 1.45 (0.26-1.65); Lambda Light Chain 51.3 mg/L (5.7-26.3)
== END 2024-03-12 11:47 | disposition home or self-care (01) ==
LOC: ANHLAB 11:58
PROVIDERS: PCP Family Medicine; Visit Provider Internal Medicine Medical Oncology
DX: R77.8 Other specified abnormalities of plasma proteins (principal); D70.9 Neutropenia, unspecified
CPT/HCPCS: 36415; 82784; 83883; 84155; 84165; 86334

== ENCOUNTER 2024-04-27 12:09 | Outpatient (CLI) | payer MEDICARE, SELFPAY | END 2024-04-27 12:10 | disposition home or self-care (01) | LOC: CHSLAB 12:17 | PROVIDERS: PCP Family Medicine; Visit Provider Specialist | DX: C44.529 Squamous cell carcinoma of skin of other part of trunk (principal) | CPT/HCPCS: 88305 ==

== ENCOUNTER 2024-11-13 10:49 | Outpatient (CLI) | payer MEDICARE, SELFPAY ==
[2024-11-13 11:23] LABS: Cholesterol 193 mg/dL (0-200); HDL Direct 48 mg/dL; Triglycerides 171 mg/dL (<150)
[2024-11-13 11:24] LABS: Hemoglobin A1C 9.6 % (<5.7)
[2024-11-13 11:34] LABS: LDL Cholesterol Direct 101 mg/dL
[2024-11-13 11:55] LABS: Prostate Specific Antigen 2.4 ng/mL (< OR = 4.0)
--- OUTSIDE RECORDS SUMMARY | 2024-11-13 16:23 | XMS_ITS | Clinical Summary ---
Author Organization [facility] Address [address] [place] [address] Phone Care Team Providers Care Data Integration Architect Name Role Phone Mandeep Hyde MD Primary Care Provider [phone] Allergies No known active allergies Medications Clopidogrel Bisulfate (PLAVIX PO) Take by mouth. Active LISINOPRIL PO Take by mouth. Active Atorvastatin Calcium (LIPITOR PO) Take by mouth. Active Niacin, Antihyperlipidem ic, (NIASPAN PO) Take by mouth. Active ASPIRIN PO Take by mouth. Active Active Problems Problem Noted Date Diagnosed Date Malignant neoplasm of overlapping sites of left lung 08/03/2015 Coronary artery disease without angina pectoris 08/03/2015 Essential hypertension 08/03/2015 Hyperlipidemia 08/03/2015 Anemia, normocytic normochromic 08/03/2015 Family History Medical History Relation Name Comments Cancer Father Diabetes Mother Relation Name Status Comments Father Mother Social History Tobacco Use Types Packs/Day Years Used Date Smoking Tobacco: Former Cigarettes 3 40 Smokeless Tobacco: Never Alcohol Use Standard Drinks/Week Comments Yes 0 (1 standard drink = 0.6 oz pur e alcohol) weekly Sex and Gender Information Value Date Recorded Sex Assigned at Not on file Legal Sex Male 5:42 PM CDT Gender Identity Not on file Sexual Orientation Not on file Last Filed Vital Signs Vital Sign Reading Time Taken Comments Blood Pressure 151/88 08/03/2015 1:59 PM SENIOR ENVIRONMENTAL TECHNICIAN Pulse 70 08/03/2015 1:59 PM SENIOR ENVIRONMENTAL TECHNICIAN Temperature 37 C (98.6 F) 08/03/2015 1:59 PM SENIOR ENVIRONMENTAL TECHNICIAN Respiratory Rate 20 08/03/2015 1:59 PM SENIOR ENVIRONMENTAL TECHNICIAN Oxygen Saturation 97% 08/03/2015 1:59 PM SENIOR ENVIRONMENTAL TECHNICIAN Inhaled Oxygen Concentration - - Weight 128.1 kg (282 lb 6.4 oz) 08/03/2015 1:59 PM SENIOR ENVIRONMENTAL TECHNICIAN Height 180.3 cm (5' 11 ) 08/03/2015 1:59 PM SENIOR ENVIRONMENTAL TECHNICIAN Body Mass Index 39.39 08/03/2015 1:59 PM SENIOR ENVIRONMENTAL TECHNICIAN Plan of Treatment Health Maintenance Due Date Last Done Comments Hepatitis C Virus (HCV) Screening 1955 TdaP Immunization 1957 SARS-COV-2 Immunization (#1) 1962 Pneumococcal Immunization (5 0+ years) (1 of 2 - PCV) 1976 Zoster Immunization (1 of 2) 1976 Colonoscopy 2002 Colorectal Cancer Screening 2002 Cologuard 2007 Immunochemical Fecal Occult Blood 2007 PSA Discussion 2012 Respiratory Syncytial Virus (RSV) Immunization (Adult) (1 - Risk 60-74 years 1-dose series) 2017 Influenza Immunization (#1) 2024 Hepatitis B Immunization Aged Out No longer eligible based on patient's age to complete this topic Meningococcal Immunization (ACWY) Aged Out No longer eligible based on patient's age to complete this topic Rotavirus Immunization Aged Out No lo nger eligible based on patient's age to complete this topic Insurance [facility] Care Teams Data Integration Architect Relationship Specialty Start Date End Date Mandeep Hyde MD [address] [place] [address] PCP - General Family Medicine 08/01/15
--- OUTSIDE RECORDS SUMMARY | 2024-11-13 16:23 | XMS_ITS | Continuity of Care Document ---
Author Organization [facility] [address] [place] [address] Phone Care Team Providers Care Laboratory Technician Name Role Phone [facility] Unavailable Unavail able Mike Villafuerte Unavailable Unavailable Procedures Procedure Date Progressive Lens, Plastic Tint Photochromatic, Plastic Anti-reflective Coating Progressive Lens, Plastic Frames Deluxe Tint Photochromatic, Plastic Anti-reflective Coating Tax - Medical Eye Exam & Treatment Refraction Eye Exam, New Patient Refraction Advance Directives Directive Yes / No Effective Date File Name No Information Encounters Encounter Description Practice Location Reason(s) For Visit Diagnoses Date Provider Providers Copied on Encounter [facility], [address] [place] [address] [address], [place], [place], [id number], [place] tel:[phone] [facility] No Information [address] [facility] . [address] [facility], [facility] [address], [place], [id number], [place]. tel:[phone] Referring Provider: Peggy Amanda, [address] [place] [address] [address], [place], [address]. tel:[phone] burt Provider: Mike Villafuerte, [address] [facility], [place], [address]. tel:[phone] [facility], [address] [place] [address] [address], [place], [place], [id number], tel:[phone] [facility] No Information [address] [facility] . [address] [facility], [address], [place], [place], [id number], . tel:[phone] Referring Provider: Peggy Amanda, [address] [place] [address] [address], [place], [place], [facility]. tel:[phone] burt Provider: Mike Villafuerte, [address] [place], [place] [address] [facility], [place], [place], [facility]. tel:[phone] [facility], [id number] [place] [address] [address], [place], [place], [id number], tel:[phone] SEC [facility] No Information [address] [place] [address] , [address], [place], [address], [place]. tel:[phone] [facility], [id number] [place] [address] [address], [place], [place], [id number], tel:[phone] SEC [facility] No Information [address] [place] [address] , [address], [place], [address], [place]. tel:[phone] Referring Provider: Mandeep Hyde MD, [facility] [address] [place], [address]. tel:[phone] Family History Family Member Type Diagnosis Age At Onset No Information Payers Payer name Insurance type Covered constitution party ID Authoriza tion(s) No Information Social History Type Description Quantity Date Captured Comments Sex Male Smoking Status No Information Chief Complaint And Reason For Visit No Information Reason For Referral Reason For Referral No Information History Of Present Illness Encounter Date Complaint History Of Prese nt Illness No Information Functional Status Date Functional Assessmen t No Information Instructions Date Instruction Additional Infor mation No Information Assessments Type Assessment Date No Information Patient Care Teams Name Effective Dates (start - stop) Status Members No Information
== END 2024-11-13 10:50 | disposition home or self-care (01) ==
LOC: ANHLAB 10:52
PROVIDERS: PCP Family Medicine; Visit Provider Student in an Organized Health Care Education/Training Program
DX: Z12.5 Encounter for screening for malignant neoplasm of prostate (principal); I10 Essential (primary) hypertension; E78.5 Hyperlipidemia, unspecified; R73.03 Prediabetes
CPT/HCPCS: 36415; 80061; 83036; 84153; G0103